=== PATIENT | female | born 1980 | race Caucasian/White ===

== ENCOUNTER 2016-11-18 08:29 | Day surgery (SDC) | payer BC ==
[~2016-11-18 08:29] MED LIST: Buffered Lidocaine 1% SYR 3ML* 3 ML/SYR SYRINGE INTRADERM ONE
[2016-11-18 08:41] LABS: Manual Entry Verification AS; UR Preg Internal Control QC Line Present; UR Preg Kit Lot# 6060104
[2016-11-18] MEDS ORDERED: Clindamycin 900 MG IVPREMIX(* 900 MG/50 ML SDV IV ONE (09:08)
[2016-11-18] MEDS ORDERED: Bupivacaine 0.25% SDV* 30 ML ONE (09:14)
[2016-11-18] MEDS ORDERED: Iohexol 180 (CONTRAST) 10 ML SDV IV ONE (09:21)
[2016-11-18] MEDS ORDERED: Midazolam* 1 MG/ML 5 ML VIAL (5 MG) ONE (09:34)
[2016-11-18] MEDS ORDERED: Atracurium* 10 MG/ML 10 ML VIAL ONE (09:34)
[2016-11-18] MEDS ORDERED: Propofol* 10 MG/ML 20 ML BTL IV PUSH ONE (09:34)
[2016-11-18] MEDS ORDERED: Scopolamine 1.5 mg* PATCH ONE (09:34)
[2016-11-18] MEDS ORDERED: fentaNYL* 50 MCG/ML 2 ML VIAL (100 MCG VIAL) ONE ×3 (09:34→11:12)
[2016-11-18] MEDS ORDERED: Ondansetron INJ* 2 MG/ML VIAL ONE ×2 (10:20→11:55)
--- NOTE | 2016-11-18 10:29 | SURGPN ---
Brief Operative Note - Surgery Procedures: Procedures Pre-OP Diagnoses: chronic cholecystitis Post-op Diagnosis: same Procedure: Laparoscopic cholecystectomy Surgeon: Eri Asst: Yaritza [place] CRNA Anethesia: ANAID Hilario EBL: minimal IVF: minimal Specimen: gallbladder Drains: none
[2016-11-18] MEDS ORDERED: Ondansetron INJ* 2 MG/ML VIAL IV PRN (11:04)
[2016-11-18] MEDS ORDERED: HYDROmorphone INJ* 1 MG/ML CARPUJECT SYRINGE IV PRN (11:04)
[2016-11-18] MEDS ORDERED: oxyCODONE TAB* 5 MG TAB PO PRN (11:04)
[2016-11-18] MEDS ORDERED: HYDROcodone/ACETAMIN 5-325 MG* 1 TAB PO PRN (11:04)
[2016-11-18] MEDS ORDERED: DiMENhydriNATE IV* 50 MG/ML VIAL IV PUSH PRN (11:04)
[2016-11-18] MEDS: fentaNYL* 50 MCG/ML 2 ML VIAL (100 MCG VIAL) IV PRN ×4 (11:14→11:55)
[2016-11-18] MEDS ORDERED: HYDROmorphone INJ* 1 MG/ML CARPUJECT SYRINGE ONE (11:36)
[2016-11-18] MEDS ORDERED: DiMENhydriNATE IV* 50 MG/ML VIAL ONE (12:17)
[2016-11-18] MEDS ORDERED: PROCHLORPERAZINE INJ 5 MG/ML 2 ML VIAL ONE (13:14)
[2016-11-18 13:38] VITALS: BP 148/92
--- NOTE | 2016-11-19 01:50 | OP ---
DATE OF OPERATION: 11/18/16 [facility] DATE OF : 82 SURGEON: Dimitrios Hwang MD CLINICAL RESEARCH TECHNICIAN: Diana [place] CRNA ANESTHESIOLOGIST: Dr. Hilario. ANESTHESIA: General. PRE-OP DIAGNOSIS: Chronic cholecystitis. POST-OP DIAGNOSIS: Chronic cholecystitis. OPERATIVE PROCEDURE: Laparoscopic cholecystectomy. ESTIMATED BLOOD LOSS: Minimal blood loss. FLUIDS: Minimal crystalloid fluid given. SPECIMEN: Gallbladder. DRAINS: None. DESCRIPTION OF PROCEDURE: The patient was identified in the preoperative area, brought to the OR, placed on the operating table in the supine position. Preoperative antibiotics were given. Sequential devices were placed on bilateral lower extremities. General anesthesia was induced. The patient's abdomen was then prepped and draped in a standard surgical fashion and a time- out was performed. Folds of the umbilicus were elevated anteriorly and a Veress needle was inserted into the abdominal cavity, which was then allowed to insufflate to a pressure of 15 mmHg. The patient tolerated the insufflation well. A periumbilical incision was made and a 5 mm trocar was inserted. Laparoscope was inserted through this and there was no evidence of injury from the Veress needle or from the port placement. Veress needle was then removed and attention was turned towards the right upper quadrant. Additional trocars were then placed in the following positions; a 12 mm in the subxiphoid area and two 5 mm along the right costal margin. The table was repositioned. Fundus of the gallbladder was soft and intact without any edema or tissue changes. This was grasped and elevated above the liver. The infundibulum was then grasped and retracted towards the right lower quadrant. This exposed the Calot's triangle, easily visualizing the common bile duct and cystic duct. Inflammation was minimal. The dissection was then carried out, taking the peritoneum off the lateral aspect of the gallbladder and also the medial aspect. Cystic artery was then isolated. It was doubly clipped and ligated. Cystic duct was then cleared off and then this was doubly clipped and ligated as well. Gallbladder was then removed from the liver bed, placed in an endoscopic retrieval bag. Review of the cystic duct stump and cystic artery stump showed no bleeding and no bile leak. Liver bed was clean. Hemostasis was excellent and the gallbladder was removed from the subxiphoid port site. Table was repositioned back to neutral. Abdomen was allowed to collapse. Trocars were removed from under direct vision and all 4 skin incisions were reapproximated with 4-0 Monocryl subcuticular sutures, followed by Steri-Strips and sterile dressing. CC: [facility]; Dr. Dionicio Lewis* [id number]/[facility] #: [id number]
== END 2016-11-18 13:32 | disposition home or self-care (01) ==
LOC: OR 08:29
PROVIDERS: ATTEND Surgery
DX: K80.10 Calculus of gallbladder with chronic cholecystitis without obstruction (principal); E66.8 Other obesity; Z88.0 Allergy status to penicillin; Z68.38 Body mass index [BMI] 38.0-38.9, adult
CPT/HCPCS: 81025; 88304; A9270-GY; J0780; J1170; J1240; J2250; J2405; J2704; J3010